=== PATIENT | male | born 1955 | race African-American/Black ===

== ENCOUNTER → 2018-03-15 | Outpatient (CLI) | payer OTHER | END | disposition home or self-care (01) | LOC: CVU 13:07 | PROVIDERS: ATTEND Internal Medicine Cardiovascular Disease | DX: R06.02 Shortness of breath (principal) | CPT/HCPCS: 93306; 94060; 94726; 94729 ==

== ENCOUNTER 2019-05-13 13:53 | Outpatient (CLI) | payer MEDICARE | END 2019-05-13 23:59 | disposition home or self-care (01) | LOC: CFH 13:53 | PROVIDERS: ATTEND Family Medicine | DX: N62 Hypertrophy of breast (principal) | CPT/HCPCS: 76642; 77066; G0279 ==

== ENCOUNTER → 2019-07-30 | Outpatient (CLI) | payer MEDICARE ==
[~2019-07-30] MED LIST: AZAT50TA9 PO; BALS750C14 PO; IRON PO; MESA10003 RC; MULT-516 PO; TAMS-11 PO
[2019-07-30 11:25] LABS: MEAN CORPUSCULAR HEMOGLOBIN 26.2 pg (27.5-34.5); MEAN CORPUSCULAR HGB CONC 32.2 g/dL (33.2-36.2); MEAN CORPUSCULAR VOLUME 81.3 fL (81-97); MEAN PLATELET VOLUME 8.4 fL (7.4-10.4); PLATELET COUNT 191 x10^3/uL (130-400); RED BLOOD COUNT 5.13 x10^6/uL (4.38-5.82); RED CELL DISTRIBUTION WIDTH 16.6 % (9.4-14.8)
[2019-07-30 11:26] LABS: MICROSCOPIC AUTO
[2019-07-30 11:27] LABS: INTERNATIONAL NORMALIZED RATIO 1.04 (0.93-1.1)
[2019-07-30 11:30] LABS: ANION GAP 6 mmol/L (5-15); CALCIUM 8.9 mg/dL (8.5-10.1); CHLORIDE 107 mmol/L (98-107); CREATININE 1.22 mg/dL (0.7-1.3)
[2019-07-30 11:34] LABS: ALANINE AMINOTRANSFERASE 31 U/L (12-78); ALKALINE PHOSPHATASE 54 U/L (45-117); BILIRUBIN,TOTAL 0.5 mg/dL (0.2-1.0); TOTAL PROTEIN 7.4 g/dL (6.4-8.2)
[2019-07-30 11:49] LABS: MD YES
[2019-07-30 11:51] LABS: <PLATELET ESTIMATE> ADEQUATE; <PLT MORPHOLOGY> NORMAL PLT MORPH; ANISOCYTOSIS 1+; BAND#(MANUAL) 0.06 x10^3/uL; BANDS%(MANUAL) 1 % (0-7); BASOS#(MANUAL) 0.12 x10^3/uL (0-0.1); BASOS% (MANUAL) 2 % (0-1); LYMPH#(MANUAL) 1.22 x10^3/uL (1-3.4); LYMPHS% (MANUAL) 20 % (22-44); MONOS#(MANUAL) 0.43 x10^3/uL (0.3-2.7); MONOS% (MANUAL) 7 % (2-9); SEG#(MANUAL) 4.27 x10^3/uL (1.8-6.8); SEGS% (MANUAL) 70 % (42-75)
== END | disposition home or self-care (01) ==
LOC: STAR 10:08
PROVIDERS: ATTEND Urology
DX: Z01.818 Encounter for other preprocedural examination (principal); C61 Malignant neoplasm of prostate
CPT/HCPCS: 36415; 80053; 81001; 85025; 85610; 87086; 93005

== ENCOUNTER 2019-08-13 07:24 | Outpatient (CLI) | payer MEDICARE ==
[~2019-08-13 07:24] MED LIST changes: +LISI-170 PO; +METO-282 PO; +OXYC-302 PO
[2019-08-13] MEDS ORDERED: CYSTO CONRAY II 250 ML VIAL UR ONE (08:12)
== END 2019-08-13 23:59 | disposition home or self-care (01) ==
LOC: RAD 07:24
PROVIDERS: ATTEND Urology
DX: C61 Malignant neoplasm of prostate (principal)
CPT/HCPCS: 74430; Q9958

== ENCOUNTER → 2020-07-07 | Outpatient (CLI) | payer MEDICARE ==
[~2020-07-07] MED LIST changes: -MESA10003 RC; -OXYC-302 PO; +OXYC1TAB14 PO; +[UNRECOGNIZED DRUG - CODE] RC
== END | disposition home or self-care (01) ==
LOC: CFH 09:36
PROVIDERS: ATTEND Family Medicine
DX: C61 Malignant neoplasm of prostate (principal); I34.0 Nonrheumatic mitral (valve) insufficiency; I10 Essential (primary) hypertension; R06.02 Shortness of breath; D50.9 Iron deficiency anemia, unspecified
CPT/HCPCS: 93306

== ENCOUNTER → 2020-08-27 | Outpatient (CLI) | payer MEDICARE | END | disposition home or self-care (01) | LOC: CFH 08:50 | PROVIDERS: ATTEND Registered Nurse | DX: M43.8X4 Other specified deforming dorsopathies, thoracic region (principal); I25.10 Atherosclerotic heart disease of native coronary artery without angina pectoris; E07.89 Other specified disorders of thyroid; Z85.46 Personal history of malignant neoplasm of prostate | CPT/HCPCS: 71250 ==

== ENCOUNTER → 2020-12-17 | Outpatient (CLI) | payer MEDICARE | END | disposition home or self-care (01) | LOC: CFH 08:26 | PROVIDERS: ATTEND Family Medicine | DX: C61 Malignant neoplasm of prostate (principal); K50.90 Crohn's disease, unspecified, without complications; M48.54XS Collapsed vertebra, not elsewhere classified, thoracic region, sequela of fracture; M81.0 Age-related osteoporosis without current pathological fracture | CPT/HCPCS: 77080 ==